=== PATIENT | male | born 1950 | race Caucasian/White ===

== ENCOUNTER → 2016-10-10 | Outpatient (CLI) | payer MEDICARE, OTHER ==
--- NOTE | ~2016-10-10 | US6 ---
[facility] A Service of [facility] & [facility] RADIOLOGY TEXT RESULTS PATIENT: SHAREE CHAVEZ LOCATION: [facility] : 54 UNIT #: [id number] AGE: [address]: Danielito Mcneil MD SEX: M ORDER DR: [id number] [facility] [address] [place], [place] [address] [id number] O MR#: [id number] Acc #: [id number] NAME: SHAREE CHAVEZ : 1950 SEX: M STUDY DATE/TIME: 10/10/2016 10:22 UNIT: [facility] ROOM: STUDY DESCRIPTION: US Abdominal Limited Attending Physician: Danielito Mcneil M.D. Referring Physician: Danielito Mcneil M.D. Ordering Physician: Danielito Mcneil M.D. Primary Care Physician: Danielito Mcneil M.D. MEDICAL IMAGING REPORT This report is preliminary unless electronic signature is present EXAM Right upper quadrant ultrasound 10/10/2016 HISTORY Right upper quadrant abdominal pain and nausea for 3 weeks. FINDINGS The liver demonstrates an increase in echotexture with attenuation of the ultrasound beam characteristic of fatty infiltration. No cystic or solid mass lesions were seen in the liver. The intra and extrahepatic bile ducts are not dilated. Gallbladder is normal with no evidence of cholelithiasis, wall thickening or pericholecystic fluid. The common duct measures 6 mm. The pancreas is poorly visualized due to overlying bowel gas. There is a 1.5 cm cyst on the right kidney. IMPRESSION 1. Fatty infiltration of the liver. 2. Normal gallbladder. 3. Poor visualization of the pancreas due to overlying bowel gas. 4. Right renal cyst. Dictated by... Orville Dorantes M.D. THIS IS AN ELECTRONICALLY VERIFIED REPORT Orville Dorantes M.D. at 10/11/2016 5:11 PM Nicole TD: 10/10/2016 15:24 JOB #: [id number] MEDICAL IMAGING REPORT Page 1 of 1 COPY
== END | disposition home or self-care (01) ==
LOC: CGUS 10:00
DX: R74.0 Nonspecific elevation of levels of transaminase and lactic acid dehydrogenase [LDH] (principal); K76.0 Fatty (change of) liver, not elsewhere classified; N28.1 Cyst of kidney, acquired
CPT/HCPCS: 76705